=== PATIENT | male | born 1955 | race Caucasian/White ===

== ENCOUNTER 2021-09-24 18:57 | Emergency (ER) | payer BC ==
[~2021-09-24] VITALS: Ht 167.6 cm; Wt 65.0 kg
[2021-09-24 18:59] VITALS: BP 181/75
[2021-09-24] MEDS ORDERED: TETANUS, DIPHTHERIA, PERTUSSIS VAC/PF 0.5ML (>10YR OLD) IM ONE (20:15)
[2021-09-24] MEDS ORDERED: BACITRACIN ZINC OINT UDPKT TOP ONE (20:15)
[2021-09-24] MEDS ORDERED: LIDOCAINE HCL 1% 20ML VIAL (Pyxis) INJ INFIL ONE (21:30)
[2021-09-24] MEDS ORDERED: BACITRACIN 15GM TUBE TOP ONE (22:45)
[2021-09-24] MEDS ORDERED: IBUP-2029 MT (22:46)
== END 2021-09-24 23:03 | disposition home or self-care (01) ==
LOC: ER 18:57
DX: S61.412A Laceration without foreign body of left hand, initial encounter (principal); X58.XXXA Exposure to other specified factors, initial encounter; Y93.89 Activity, other specified; Y92.89 Other specified places as the place of occurrence of the external cause; Y99.0 Civilian activity done for income or pay
CPT/HCPCS: 12002; 73130; 99283